=== PATIENT | male | born 1935 | race Caucasian/White ===

== ENCOUNTER 2024-04-25 15:08 | Inpatient (IN) | payer MEDICARE, OTHER ==
[~2024-04-25] VITALS: Ht 172.7 cm; Wt 77.1 kg
[2024-04-25] MEDS: IV NORMAL SALINE 1000 ML BAG IV ONE (15:50)
[2024-04-25 15:56] LABS: BASOPHILS % (AUTO) 0.7 % (0.0-2.0); EOSINOPHILS # (AUTO) 0.4 K/uL (0.0-0.7); HEMATOCRIT 34.3 % (36.7-47.1); HEMOGLOBIN 11.9 g/dL (12.5-16.3); LYMPHOCYTES # (AUTO) 1.9 K/uL (0.8-4.8); LYMPHOCYTES % (AUTO) 28.5 % (20.5-51.5); MEAN CORPUSCULAR HEMOGLOBIN 30.4 uug (23.8-33.4); MEAN CORPUSCULAR HGB CONC 35 g/dL (32.5-36.3); MEAN CORPUSCULAR VOLUME 87.8 fL (73.0-96.2); MONOCYTES # (AUTO) 0.5 K/uL (0.1-1.30); MONOCYTES % (AUTO) 7.1 % (0.0-11.0); NEUTROPHILS # (AUTO) 3.8 K/uL (1.8-8.9); NEUTROPHILS % (AUTO) 57.7 % (38.5-71.5); PLATELET COUNT (AUTO) 147 K/uL (152-348); RED CELL DISTRIBUTION WIDTH 12.5 % (12.1-16.2); WHITE BLOOD COUNT (AUTO) 6.6 K/uL (3.6-10.2)
[2024-04-25 16:01] LABS: DIFFERENTIAL COMMENT 1
[2024-04-25] MEDS ORDERED: SWABABLE VALVE TRANSFER SET EA MC ONE (16:03)
[2024-04-25] MEDS ORDERED: IOHEXOL 350 100 ML INFUS..BTL ONE (16:03)
[2024-04-25 16:04] LABS: CALCIUM 8.9 mg/dL (8.5-10.1); CARBON DIOXIDE 29 mmol/L (21-32); CHLORIDE 106 mmol/L (98-107); CREATININE 1.6 mg/dL (0.6-1.3); GLUCOSE 96 mg/dL (74-106); POTASSIUM 4.8 mmol/L (3.5-5.1); SODIUM SERUM 142 mmol/L (136-145); UREA NITROGEN, BLOOD 40 mg/dL (7-18)
[2024-04-25] MEDS ORDERED: IV NORMAL SALINE 250 ML IV ONE (16:04)
[2024-04-25 16:13] LABS: ALANINE AMINOTRANSFERASE 49 U/L (16-63); ALBUMIN 3.4 g/dL (3.4-5.0); ALKALINE PHOSPHATASE 103 U/L (50-136); ASPARTATE AMINOTRANSFERASE 24 U/L (15-37); BILIRUBIN,DIRECT 0.1 mg/dL (0.0-0.2); BILIRUBIN,TOTAL 0.4 mg/dL (0.2-1.0); TOTAL PROTEIN, SERUM 7.2 g/dL (6.4-8.2)
[2024-04-25] MEDS ORDERED: RIVA20TA PO (16:22)
[2024-04-25] MEDS ORDERED: GABA300C PO (16:57)
[2024-04-25] MEDS ORDERED: INSU100V28 (16:57)
[2024-04-25] MEDS ORDERED: ATOR40TA PO (16:57)
[2024-04-25 16:58] LABS: *BILIRUBIN,URIN NEGATIVE (NEGATIVE); *BLOOD, URINE NEGATIVE (NEGATIVE); *CLARITY,URINE CLEAR (CLEAR); *COLOR,URINE LIGHT YELLOW (YELLOW); *KETONES,URINE NEGATIVE (NEGATIVE); *PROTEIN,URINE NEGATIVE (NEGATIVE); *UROBILINOGEN,URINE 0.2 E.U./dl (NORMAL); LEUKOCYTE ESTERASE ,URINE NEGATIVE (NEGATIVE); NITRITE, URINE NEGATIVE (NEGATIVE); PH,URINE 5.5 (5.0-8.0); UGLUCOSE NEGATIVE (NEGATIVE)
[2024-04-25] MEDS ORDERED: ONDANSETRON 4 MG/2 ML VIAL IV PRN (19:45)
[2024-04-25] MEDS ORDERED: REMEDY ESSENTIAL ZINC PASTE 113 GM TP PRN (19:45)
[2024-04-25] MEDS ORDERED: ASPIRIN 325 MG TABLET PO ONE (19:45)
[2024-04-25] MEDS ORDERED: DEXTROSE 50% 50 ML DISP.SYRIN IV PRN (19:45)
[2024-04-25] MEDS ORDERED: ACETAMINOPHEN 325 MG TABLET PO PRN (19:45)
[2024-04-25] MEDS ORDERED: AZITHROMYCIN 250 MG TABLET PO ONE (19:45)
[2024-04-25 20:50] VITALS: BP 128/75; TEMP 97.6; O2SAT 99
[2024-04-25] MEDS: BLOOD SUGAR DIAGNOSTIC 1 EACH STRIP VI SCH (21:31)
[2024-04-25] MEDS: ATORVASTATIN 40 MG TABLET PO SCH (21:41)
[2024-04-25] MEDS: ASPIRIN 325 MG TABLET PO ONE (21:46)
[2024-04-25] MEDS: AZITHROMYCIN 250 MG TABLET PO ONE (21:47)
[2024-04-26 00:01] VITALS: BP 134/74; TEMP 97.6; O2SAT 98
[2024-04-26 04:32] VITALS: BP 122/50; TEMP 97.7; O2SAT 100
[2024-04-26] MEDS: PANTOPRAZOLE SODIUM 40 MG TABLET.DR PO SCH (06:14)
[2024-04-26 07:07] LABS: BASOPHILS % (AUTO) 0.5 % (0.0-2.0); EOSINOPHILS # (AUTO) 0.4 K/uL (0.0-0.7); EOSINOPHILS % (AUTO) 5.3 % (0.0-7.0); HEMATOCRIT 31.8 % (36.7-47.1); HEMOGLOBIN 11.4 g/dL (12.5-16.3); LYMPHOCYTES # (AUTO) 1.8 K/uL (0.8-4.8); LYMPHOCYTES % (AUTO) 23.1 % (20.5-51.5); MEAN CORPUSCULAR HEMOGLOBIN 32.1 uug (23.8-33.4); MEAN CORPUSCULAR HGB CONC 36 g/dL (32.5-36.3); MEAN CORPUSCULAR VOLUME 89.2 fL (73.0-96.2); MONOCYTES # (AUTO) 0.5 K/uL (0.1-1.30); MONOCYTES % (AUTO) 5.9 % (0.0-11.0); NEUTROPHILS % (AUTO) 65.2 % (38.5-71.5); PLATELET COUNT (AUTO) 136 K/uL (152-348); RED BLOOD CELL COUNT(AUTO) 3.56 MIL/uL (4.06-5.63); RED CELL DISTRIBUTION WIDTH 12.4 % (12.1-16.2); WHITE BLOOD COUNT (AUTO) 7.7 K/uL (3.6-10.2)
[2024-04-26 07:29] LABS: CALCIUM 8.4 mg/dL (8.5-10.1); CARBON DIOXIDE 26 mmol/L (21-32); CHLORIDE 109 mmol/L (98-107); CHOLESTEROL 137 mg/dL (<200); CREATININE 1.4 mg/dL (0.6-1.3); GLUCOSE 99 mg/dL (74-106); HDL CHOLESTEROL 42 mg/dL (40-60); MAGNESIUM 1.9 mg/dL (1.8-2.4); PHOSPHOROUS 3.9 mg/dL (2.5-4.9); POTASSIUM 4.1 mmol/L (3.5-5.1); SODIUM SERUM 142 mmol/L (136-145); TRIGLYCERIDES 115 MG/DL (30-150); UREA NITROGEN, BLOOD 37 mg/dL (7-18)
[2024-04-26 07:35] VITALS: BP 123/50; TEMP 97.7; O2SAT 99
[2024-04-26 07:38] LABS: DIFFERENTIAL COMMENT 1
[2024-04-26 08:24] LABS: THYROID STIMULATING HORMONE 2.587 mIU/mL (0.358-3.740)
[2024-04-26] MEDS: IV 1/2NS 1000 ML 1,000 ML IV PRN (10:09)
[2024-04-26] MEDS: INSULIN REGULAR, HUMAN 1000 UNIT/10 ML VIAL SQ PRN (11:31)
[2024-04-26 11:36] VITALS: BP 148/49; TEMP 97.6; O2SAT 99
[2024-04-26] MEDS ORDERED: ACET-73 PO (12:35)
[2024-04-26] MEDS ORDERED: FLUT1BLS6 IH (12:36)
[2024-04-26] MEDS ORDERED: EZET10TA32 PO (12:42)
[2024-04-26] MEDS ORDERED: TRAZ-257 PO (12:42)
[2024-04-26] MEDS ORDERED: DUTA0.5C37 PO (12:43)
[2024-04-26] MEDS ORDERED: VENL75CA62 PO (12:43)
[2024-04-26] MEDS ORDERED: TAMS-3 PO (12:44)
[2024-04-26] MEDS ORDERED: ROSU10TA2 PO (12:45)
[2024-04-26] MEDS ORDERED: EMPA25TA PO (12:47)
[2024-04-26] MEDS ORDERED: METF-440 PO (12:47)
[2024-04-26] MEDS ORDERED: ICOS1CAP PO (12:47)
[2024-04-26] MEDS ORDERED: ASCO500T21 PO (12:49)
[2024-04-26] MEDS ORDERED: MOUNJARO SQ (12:50)
[2024-04-26] MEDS ORDERED: INSU100V11 SQ (15:56)
[2024-04-26 15:59] VITALS: BP 117/48; TEMP 98.1; O2SAT 99
[2024-04-26] MEDS ORDERED: Medication Not On Formulary EA (Icosapent Ethyl (Vascepa) 1 GM) PO SCH (17:00)
[2024-04-26] MEDS: TAMSULOSIN HCL 0.4 MG CAP.SR.24H PO SCH (17:33)
[2024-04-26] MEDS: FLUTICASONE/VILANTEROL 1 EACH BLST.W.DEV INH SCH (17:34)
[2024-04-26] MEDS: EZETIMIBE 10 MG TABLET PO SCH (17:35)
[2024-04-26] MEDS: HEPARIN SODIUM,PORCINE 5,000 UNITS/ML VIAL SQ ONE (17:41)
[2024-04-26 19:00] VITALS: BP 129/52; TEMP 97.9; O2SAT 100
[2024-04-26] MEDS: GABAPENTIN 300 MG CAPSULE PO SCH (20:58)
[2024-04-26] MEDS: AZITHROMYCIN 250 MG TABLET PO SCH (20:58)
[2024-04-26] MEDS: TRAZODONE 100 MG TABLET PO SCH (20:59)
[2024-04-27 00:55] VITALS: BP 104/45; TEMP 97.7; O2SAT 100
[2024-04-27 04:00] VITALS: BP 117/32; TEMP 97.4; O2SAT 99
[2024-04-27 06:57] LABS: BASOPHILS % (AUTO) 0.6 % (0.0-2.0); EOSINOPHILS # (AUTO) 0.4 K/uL (0.0-0.7); EOSINOPHILS % (AUTO) 6.6 % (0.0-7.0); HEMOGLOBIN 11.4 g/dL (12.5-16.3); LYMPHOCYTES # (AUTO) 1.8 K/uL (0.8-4.8); LYMPHOCYTES % (AUTO) 30.4 % (20.5-51.5); MEAN CORPUSCULAR HEMOGLOBIN 31.6 uug (23.8-33.4); MEAN CORPUSCULAR HGB CONC 36 g/dL (32.5-36.3); MEAN CORPUSCULAR VOLUME 88.9 fL (73.0-96.2); MONOCYTES # (AUTO) 0.4 K/uL (0.1-1.30); MONOCYTES % (AUTO) 6.8 % (0.0-11.0); NEUTROPHILS # (AUTO) 3.3 K/uL (1.8-8.9); NEUTROPHILS % (AUTO) 55.6 % (38.5-71.5); PLATELET COUNT (AUTO) 138 K/uL (152-348); RED CELL DISTRIBUTION WIDTH 12.7 % (12.1-16.2); WHITE BLOOD COUNT (AUTO) 5.9 K/uL (3.6-10.2)
[2024-04-27 07:15] LABS: CALCIUM 8.8 mg/dL (8.5-10.1); CARBON DIOXIDE 25 mmol/L (21-32); CHLORIDE 107 mmol/L (98-107); CREATININE 1.4 mg/dL (0.6-1.3); GLUCOSE 261 mg/dL (74-106); PHOSPHOROUS 4.2 mg/dL (2.5-4.9); POTASSIUM 4.4 mmol/L (3.5-5.1); SODIUM SERUM 140 mmol/L (136-145); UREA NITROGEN, BLOOD 30 mg/dL (7-18)
[2024-04-27 07:18] LABS: DIFFERENTIAL COMMENT 1
[2024-04-27 07:40] VITALS: BP 123/58; TEMP 97.6; O2SAT 100
[2024-04-27] MEDS: EMPAGLIFLOZIN 25 MG TABLET PO SCH (08:57)
[2024-04-27] MEDS: DUTASTERIDE 0.5 MG CAPSULE PO SCH (08:58)
[2024-04-27] MEDS: VENLAFAXINE XR 75 MG TAB.ER.24H PO SCH (08:58)
[2024-04-27] MEDS: ASPIRIN EC 81 MG TABLET.DR PO SCH (08:58)
[2024-04-27] MEDS: ASCORBIC ACID 500 MG TABLET PO SCH (08:58)
[2024-04-27] MEDS ORDERED: Medication Not On Formulary EA (Empagliflozin (Jardiance) 25 MG) PO SCH (09:00)
[2024-04-27 11:40] VITALS: BP 139/62; TEMP 98.1; O2SAT 98
[2024-04-27 15:43] VITALS: BP 142/64; TEMP 97.9; O2SAT 98
[2024-04-27] MEDS: RIVAROXABAN 10 MG TABLET PO SCH (17:24)
[2024-04-27 20:00] VITALS: BP 126/49; TEMP 98.1
[2024-04-28 00:57] VITALS: BP 111/40; TEMP 98.5
[2024-04-28 04:00] VITALS: BP 105/45; TEMP 97.8
[2024-04-28 07:38] VITALS: BP 109/47; TEMP 98.6; O2SAT 97
== END 2024-04-28 11:50 | disposition home or self-care (01) | DRG 67 ==
LOC: ER 15:08 → TELE3 20:00
PROVIDERS: ADMIT Nurse Practitioner Family; ATTEND Nurse Practitioner Family
DX: I65.02 Occlusion and stenosis of left vertebral artery (principal); N17.0 Acute kidney failure with tubular necrosis; G93.40 Encephalopathy, unspecified; R47.81 Slurred speech; R29.700 NIHSS score 0; R53.1 Weakness; R47.1 Dysarthria and anarthria; J98.4 Other disorders of lung; E11.40 Type 2 diabetes mellitus with diabetic neuropathy, unspecified; N40.0 Benign prostatic hyperplasia without lower urinary tract symptoms; E78.5 Hyperlipidemia, unspecified; D64.9 Anemia, unspecified; I10 Essential (primary) hypertension; F32.A Depression, unspecified; J45.909 Unspecified asthma, uncomplicated; Z86.718 Personal history of other venous thrombosis and embolism; Z95.0 Presence of cardiac pacemaker; Z95.828 Presence of other vascular implants and grafts; Z86.73 Personal history of transient ischemic attack (TIA), and cerebral infarction without residual deficits; Z79.4 Long term (current) use of insulin; M89.8X9 Other specified disorders of bone, unspecified site; Z91.148 Patient's other noncompliance with medication regimen for other reason; Z79.01 Long term (current) use of anticoagulants
CPT/HCPCS: 36415; 70450; 70496; 70551; 71045; 76770; 83605; 83735; 83921; 84100; 84443; 84484; 85025; 85730; 93307; G0378; J1644; J1815; J7040; Q0144; Q9967